=== PATIENT | female | born 1980 | race Caucasian/White ===

== ENCOUNTER 2018-05-14 14:28 | Emergency (ER) | END 2018-05-14 15:44 | disposition home or self-care (01) ==

== ENCOUNTER 2018-12-01 15:06 | Emergency (ER) | payer MEDICAID ==
[~2018-12-01] VITALS: Ht 154.9 cm; Wt 73.9 kg
[~2018-12-01 15:06] MED LIST: CALC600T5 PO; DICY10CA40 PO; FERR240T9 PO; PREN1TAB49 PO
[2018-12-01 15:14] VITALS: Ht 154.9 cm; Wt 73.9 kg
[2018-12-01] MEDS ORDERED: IBUP-1542 PO (15:45)
[2018-12-01] MEDS ORDERED: NPH10OT LEFT EAR (15:45)
--- NOTE | 2018-12-01 15:47 | ERD ---
ER Documentation Chief Complaint Chief Complaint LT EAR PAIN SINCE MONDAY HPI 38-year-old female presents with pain and decreased hearing left ear for last 3 days. She has fevers, congestion, bleeding, discharge. Denies any inciting events. ROS All systems reviewed and are negative except as per history of present illness. Medications Home Meds Active Scripts Ibuprofen* (Motrin*) 600 Mg Tab, 600 MG PO Q6, #15 TAB Prov:ALIDA COTTRELL MD 12/01/18 Neomycin/Polymyxin/Hydrocort* (Cortisporin* Otic) 10 Ml Susp, 4 DROP LEFT EAR QID for 7 Days, EA Prov:ALIDA COTTRELL MD 12/01/18 Dicyclomine HCl (Dicyclomine HCl) 10 Mg Capsule, 10 MG PO QID, #12 CAP Prov:MC MILLER PA-C 02/15/16 Reported Medications Calcium Carbonate (CALCIUM) 600 Mg Tablet, 600 MG PO DAILY 08/10/13 Ferrous Gluconate (Iron) 1 Tab Tablet, 1 TAB PO DAILY 05/10/12 Vits W-Ca,Fe,Fa(<1MG) () 1 Tab Tablet, 1 TAB PO DAILY 05/10/12 Allergies Allergies: Coded Allergies: Penicillins (Verified Allergy, 08/10/13) PMhx/Soc History of Surgery: Yes (tubal ligation) Hx Alcohol Use: No Hx Substance Use: No Hx Tobacco Use: No Smoking Status: Never smoker FmHx Family History: No diabetes, No coronary disease, No other Physical Exam Vitals Vital Signs Date Temp Pulse Resp B/P (MAP) Pulse Ox O2 O2 Flow FiO2 Time Delivery Rate 12/01/18 98.1 85 16 121/64 98 15:14 (83) Physical Exam Const: No acute distress Head: Atraumatic Eyes: Normal Conjunctiva ENT: Normal External Ears, Nose and Mouth. Pain with passive range of motion left external ear. Decreased diameter of the external auditory canal with irritation and discharge. TM appears normal through the external auditory canal swelling. Neck: Full range of motion. No meningismus. Resp: Clear to auscultation bilaterally Cardio: Regular rate and rhythm, no murmurs Abd: Soft, non tender, non distended. Normal bowel sounds Skin: No petechiae or rashes Back: No midline or flank tenderness Ext: No cyanosis, or edema Neur: Awake and alert Psych: Normal Mood and Affect Results 24 hrs Current Medications Medications Dose Sig/Leandra Start Time Status Last (Trade) Ordered Route PRN Stop Time Admin Dose Reason Admin 650 mg ONCE ONCE 12/01/18 Acetaminophen PO 16:00 12/01/18 (Tylenol 16:01 Tab) 4 drop BID LEFT 12/01/18 Ciprofloxacin EAR 21:00 HCl (Ciprofloxaci n HCl Otic) Procedures/MDM Patient presents with signs and symptoms of left otitis externa without signs of cellulitis, malignant otitis externa, mastoiditis, additional concerning signs or symptoms. She will be treated with Cortisporin, ibuprofen, primary care follow-up and return precautions. The patient was stable with no new complaints during the ER course. Clinically, there is no current evidence to suggest meningitis, sepsis, acute abdomen, pneumonia, stroke, acute coronary syndrome, pulmonary embolism, aortic dissection or any other emergent condition appearing to require further evaluation or hospitalization. Patient counseled regarding my diagnostic impression and care plan. Prior to discharge all questions answered. Pt agrees with treatment plan and understands strict return precautions. Pt is instructed to follow up with primary care provider within 24- 48 hours. Precautionary instructions provided including instructions to return to the ER if not improving or for any worsening or changing symptoms or concerns. Disclaimer: Inadvertent spelling and grammatical errors are likely due to EHR/dictation software use and do not reflect on the overall quality of patient care. Also, please note that the electronic time recorded on this note does not necessarily reflect the actual time of the patient encounter. Departure Diagnosis: Primary Impression: Otitis externa Otitis externa type: diffuse Chronicity: acute Laterality: left Qualified Codes: H60.312 - Diffuse otitis externa, left ear Additional Impression: Left ear pain Condition: Stable Patient Instructions: External Ear Infection (Adult) Additional Instructions: Cheque otro vez con hollis doctor primario en el proximo membreno or regresa para mas o nueva simptomas. ALIDA COTTRELL MD Dec 01, 2018 15:47
[2018-12-01] MEDS ORDERED: ACETAMINOPHEN 325 MG TAB PO ONE (16:00)
[2018-12-01 16:01] VITALS: BP 123/62; PULSE 68; RESP 16
[2018-12-01] MEDS ORDERED: CIPROFLOXACIN HCL OTIC DROP 0.25 ML LEFT EAR SCH (21:00)
[2018-12-02] MEDS ORDERED: ACET1TAB40 PO (19:56)
[2018-12-02] MEDS ORDERED: CIPR500T4 PO (19:56)
== END 2018-12-01 16:01 | disposition home or self-care (01) ==
LOC: FTE 15:06
DX: H60.312 Diffuse otitis externa, left ear (principal)
CPT/HCPCS: Z7502; Z7610; 99283

== ENCOUNTER 2018-12-02 18:28 | Emergency (ER) | payer MEDICAID ==
[~2018-12-02] VITALS: Ht 154.9 cm; Wt 73.0 kg
[~2018-12-02 18:28] MED LIST changes: +IBUP-1542 PO; +NPH10OT LEFT EAR
[2018-12-02 18:32] VITALS: BP 112/64; PULSE 81; RESP 18; Ht 154.9 cm; Wt 73.0 kg
[2018-12-02] MEDS ORDERED: ACET1TAB40 PO (19:56)
[2018-12-02] MEDS ORDERED: CIPR500T4 PO (19:56)
--- NOTE | 2018-12-02 19:59 | ERD ---
ER Documentation Chief Complaint Chief Complaint READMIT D/T CONTINUED LEFT EAR PAIN HPI 38-year-old female presents with left ear pain. She seen yesterday and diagnosed with otitis externa. She states that she had more pain. She denies fevers, vomiting, shortness of the chest pain. Denies bleeding or discharge. ROS All systems reviewed and are negative except as per history of present illness. Medications Home Meds Active Scripts Ciprofloxacin Hcl* (Ciprofloxacin Hcl*) 500 Mg Tablet, 500 MG PO BID for 7 Days, TAB Prov:ALIDA COTTRELL MD 12/02/18 Acetaminophen with Codeine (Acetaminophen-Cod #3 Tablet) 1 Each Tablet, 1 TAB PO Q6H, #7 TAB Prov:ALIDA COTTRELL MD 12/02/18 Ibuprofen* (Motrin*) 600 Mg Tab, 600 MG PO Q6, #15 TAB Prov:ALIDA COTTRELL MD 12/01/18 Neomycin/Polymyxin/Hydrocort* (Cortisporin* Otic) 10 Ml Susp, 4 DROP LEFT EAR QID for 7 Days, EA Prov:ALIDA COTTRELL MD 12/01/18 Dicyclomine HCl (Dicyclomine HCl) 10 Mg Capsule, 10 MG PO QID, #12 CAP Prov:MC MILLER PA-C 02/15/16 Reported Medications Calcium Carbonate (CALCIUM) 600 Mg Tablet, 600 MG PO DAILY 08/10/13 Ferrous Gluconate (Iron) 1 Tab Tablet, 1 TAB PO DAILY 05/10/12 Vits W-Ca,Fe,Fa(<1MG) () 1 Tab Tablet, 1 TAB PO DAILY 05/10/12 Allergies Allergies: Coded Allergies: Penicillins (Verified Allergy, 08/10/13) PMhx/Soc History of Surgery: Yes (tubal ligation) Hx Alcohol Use: No Hx Substance Use: No Hx Tobacco Use: No Smoking Status: Never smoker FmHx Family History: No diabetes, No coronary disease, No other Physical Exam Vitals Vital Signs Date Temp Pulse Resp B/P (MAP) Pulse Ox O2 O2 Flow FiO2 Time Delivery Rate 12/02/18 99.9 81 18 112/64 99 18:32 (80) Physical Exam Const: No acute distress Head: Atraumatic Eyes: Normal Conjunctiva ENT: Normal External Ears, Nose and Mouth. Left external auditory canal almost closed due to swelling. There is scattered yellow discharge of the canal. There is scant discharge in the right canal although patent. TMs grossly normal. No mastoid tenderness. Neck: Full range of motion. No meningismus. Resp: Clear to auscultation bilaterally Cardio: Regular rate and rhythm, no murmurs Abd: Soft, non tender, non distended. Normal bowel sounds Skin: No petechiae or rashes Back: No midline or flank tenderness Ext: No cyanosis, or edema Neur: Awake and alert Psych: Normal Mood and Affect Procedures/MDM No signs or symptoms of otitis externa. She is using Cortisporin drops. We will add Cipro for Pseudomonas coverage given closure of the canal. She has no signs of malignant otitis externa, mastoiditis, cellulitis, additional concerning signs or symptoms. She is advised to return for fevers, worsening redness, swelling, new worsening symptoms otherwise we will add Tylenol 3 and Cipro as directed. The patient was stable with no new complaints during the ER course. Clinically, there is no current evidence to suggest meningitis, sepsis, acute abdomen, pneumonia, stroke, acute coronary syndrome, pulmonary embolism, aortic dissection or any other emergent condition appearing to require further evaluation or hospitalization. Patient counseled regarding my diagnostic im pression and care plan. Prior to discharge all questions answered. Pt agrees with treatment plan and understands strict return precautions. Pt is instructed to follow up with primary care provider within 24-48 hours. Precautionary instructions provided including instructions to return to the ER if not improving or for any worsening or changing symptoms or concerns. Disclaimer: Inadvertent spelling and grammatical errors are likely due to EHR/dictation software use and do not reflect on the overall quality of patient care. Also, please note that the electronic time recorded on this note does not necessarily reflect the actual time of the patient encounter. Departure Diagnosis: Primary Impression: Ear problem Laterality: left Qualified Codes: H93.92 - Unspecified disorder of left ear Condition: Stable Patient Instructions: External Ear Infection (Adult) Referrals: NO PRIMARY,CARE PHYSICIAN (PCP) Additional Instructions: Cheque otro vez con hollis doctor primario en el proximo membreno or regresa para mas o nueva simptomas. AILDA COTTRELL MD Dec 02, 2018 19:59
== END 2018-12-02 20:13 | disposition home or self-care (01) ==
LOC: FTE 18:28
DX: H93.92 Unspecified disorder of left ear (principal)
CPT/HCPCS: 99283